=== PATIENT | male | born 1995 | race Caucasian/White ===

== ENCOUNTER 2016-12-29 15:22 | Emergency (ER) | payer BC ==
[2016-12-29 15:34] VITALS: BP 123/84
--- NOTE | 2016-12-29 16:20 | ED ---
Headache - HPI Summary HPI Summary: 21 yr old with multiple complaints. Complains of frontal headache 3 days duration, that has persisted. No photophobia. He has neck pain left anterior neck. He states he has had night sweats. Swollen lymph node in neck, nausea, and diarrhea for a week. he states he is not able to drink ETOH as much as usual. He could only drink three beers sunday due to GI upset. he has had epigastric pain and left upper quadrant pain. The patient denies focal weakness or numbness. He denies seizure. - History Of Current Complaint Chief Complaint: UCGeneralIllness Stated Complaint: FRANK/NECK COMPLAINT Time Seen by Provider: 12/29/16 15:55 - Allergies/Home Medications Allergies/Adverse Reactions: Allergies Allergy/AdvReac Type Severity Reaction Status Date / Time No Known Allergies Allergy Verified 12/29/16 15:25 Home Medications: Home Medications Ibuprofen [Advil] 2 tab PO SEE INSTRUCTIONS PRN 12/29/16 [History Confirmed ] Ranitidine HCl [Zantac 150 Maximum Streng] 1 tab PO DAILY 12/29/16 [History Confirmed 12/29/16] PMH/Surg Hx/FS Hx/Imm Hx Respiratory History: Reports: Hx Asthma - As a child - Surgical History Surgery Procedure, Year, and Place: T/A; [place] Teeth extraction Infectious Disease History: No Infectious Disease History: Denies: Traveled Outside the [place] in Last 30 Days - Family History Known Family History: Positive: Other - grandfather of skin cancer - Social History Alcohol Use: Weekly - two to three times a week he goes out drinking. Substance Use Type: Reports: None Smoking Status (MU): Never Smoked Tobacco Review of Systems Constitutional: Negative Eyes: Negative Positive: Other - left neck pain, lymph node swollen Cardiovascular: Negative Respiratory: Negative Positive: Diarrhea, Nausea Genitourinary: Negative Musculoskeletal: Negative Skin: Negative Positive: Headache All Other Systems Reviewed And Are Negative: Yes Physical Exam Triage Information Reviewed: Yes Vital Signs On Initial Exam: Initial Vitals Temp Pulse Resp BP Pulse Ox 97.8 F 104 14 123/84 98 12/29/16 15:27 12/29/16 15:27 12/29/16 15:27 12/29/16 15:27 12/29/16 15:27 Appearance: Positive: Well-Appearing, No Pain Distress Skin: Positive: Warm, Skin Color Reflects Adequate Perfusion Head/Face: Positive: Normal Head/Face Inspection Eyes: Positive: Normal, EOMI ENT: Positive: TMs normal. Negative: Muffled/hoarse voice Neck: Positive: Enlarged Nodes @ - anterior superior bilateral with some tenderness left side Respiratory/Lung Sounds: Positive: Clear to Auscultation Cardiovascular: Positive: Normal, RRR. Negative: Murmur Abdomen Description: Positive: Nontender Musculoskeletal: Positive: Normal, Strength/ROM Intact Neurological: Positive: Normal, Sensory/Motor Intact, Alert, Oriented to Person Place, Time, CN Intact II-III, Normal Gait, Speech Normal Psychiatric: Positive: Normal - Fara Coma Scale Best Eye Response: 4 - Spontaneous Best Motor Response: 6 - Obeys Commands Best Verbal Response: 5 - Oriented Diagnostics - Vital Signs Vital Signs Temp Pulse Resp BP Pulse Ox 12/29/16 15:27 97.8 F 104 14 123/84 98 - Laboratory Lab Statement: Any lab studies that have been ordered have been reviewed, and results considered in the medical decision making process. Headache Course/Dx - Course Course Of Treatment: 21 yr old male with complaint of multiple symptoms. He was told he needed to go to the ED. He chooses to go to [facility]. I have called and spoken with Veronika Garcia NP. She is expecting the patient and accepts. The patient refuses ambulance. He signed out AMA understanding the risks. - Diagnoses Provider Diagnoses: Headache, Lymphadenopathy Discharge - Discharge Plan Condition: Good Disposition: AGAINST MEDICAL ADVICE
== END 2016-12-29 16:15 | disposition left against medical advice (07) ==
LOC: UCCORT 15:22
DX: R51 Headache (principal); R59.1 Generalized enlarged lymph nodes; M54.2 Cervicalgia; R19.7 Diarrhea, unspecified; R11.0 Nausea
CPT/HCPCS: 99212; G0463